=== PATIENT | male | born 1960 ===

== ENCOUNTER → 2022-09-17 12:46 | Outpatient (CLI) | payer BC, SELFPAY ==
--- NOTE | ~2022-09-17 | CT_ITS ---
EXAMINATION: CT diagnostic chest wo con DATE: 09/17/2022 13:13 INDICATION: Solitary pulmonary nodule TECHNIQUE: Computed tomography (CT) of the chest was performed without intravenous contrast. The dose -length product was 353.20 mGy-cm. Automated exposure control and iterative reconstruction technique were employed. COMPARISON: None FINDINGS: Heart size is normal. No significant pleural or pericardial effusion. No significant vascul ar abnormality. No lymphadenopathy. The upper abdomen is unremarkable. There is a 4 mm fissural nodul e on the right, image 63. There is a 2 mm nodule in the right upper lobe adjacent to the fissure. The re is calcified granuloma in the left upper lobe. There is 2 mm left fissural nodule, image 37. There is apical pleural thickening/scarring. There is a mild paraseptal emphysema. No endobronchial lesion s. No pneumothorax. There are multiple healed left posterior rib fractures. No focal lytic or blastic lesions. Mild thoracic spondylosis. IMPRESSION: 1. Bilateral pulmonary nodules measuring 4 mm or less, likely benign. Recommend follow-up low dose CT chest in 12 months. Reviewed, dictated and finalized at location A. [facility] [employer]
== END ==
PROVIDERS: PCP Family Medicine; Visit Provider Family Medicine
DX: R91.8 Other nonspecific abnormal finding of lung field (principal)
CPT/HCPCS: 71250